=== PATIENT | female | born 1995 | race Caucasian/White ===

== ENCOUNTER 2021-11-22 19:49 | Emergency (ER) | payer MEDICAID, MEDICARE ==
[~2021-11-22] VITALS: Ht 157.5 cm; Wt 69.6 kg
[~2021-11-22 19:49] MED LIST: T3 PO
[2021-11-22 20:38] VITALS: BP 104/64
[2021-11-22] MEDS ORDERED: KETOROLAC 30MG/ML VIAL IM ONE (22:15)
[2021-11-22] MEDS ORDERED: FAMOTIDINE 20MG TABLET PO ONE (22:15)
[2021-11-22] MEDS ORDERED: VISCOUS LIDOCAINE 2% 15 ML UDC PO STA (22:15)
[2021-11-22] MEDS ORDERED: MAGNESIUM/ALUMINUM HYDROXIDE/SIMETHICONE 30ML UDC PO STA (22:15)
== END 2021-11-22 23:52 | disposition left against medical advice (07) ==
LOC: ER 19:49
DX: R10.9 Unspecified abdominal pain (principal); J45.909 Unspecified asthma, uncomplicated
CPT/HCPCS: 99281